=== PATIENT | female | born 1985 | race Hispanic/Latino ===

== ENCOUNTER 2023-03-27 06:43 | Day surgery (SDC) | payer MEDICAID ==
[2023-03-23 10:51] VITALS: BP 118/67; PULSE 67; RESP 18
[~2023-03-27] VITALS: Ht 165.1 cm; Wt 1.4 kg
[~2023-03-27 06:43] MED LIST: SEMA1PEN3 SQ; [UNRECOGNIZED DRUG - OTHER] PO
[2023-03-27 07:10] VITALS: BP 130/83; PULSE 80; RESP 20
[2023-03-27] MEDS ORDERED: PROPOFOL 10 MG/ML 20ML VIAL IV ONE (07:33)
[2023-03-27] MEDS ORDERED: LIDOCAINE HCL 1% 20 ML VIAL ONE (07:36)
== END 2023-03-27 09:20 | disposition home or self-care (01) ==
LOC: DAH 06:43 → ENDO 06:43
PROVIDERS: ATTEND Surgery
DX: K21.9 Gastro-esophageal reflux disease without esophagitis (principal); Z20.822 Contact with and (suspected) exposure to COVID-19; E66.01 Morbid (severe) obesity due to excess calories; Z68.35 Body mass index [BMI] 35.0-35.9, adult
CPT/HCPCS: 87426; 81025; 71045; 43235; 93005; J3490; A4620; A4215 ×2; A4223; A7002; A4222; A4221; A4663; J7030; A4606; J2704